=== PATIENT | female | born 1975 | race Caucasian/White ===

== ENCOUNTER 2020-03-11 08:07 | Outpatient (CLI) | payer OTHER ==
--- NOTE | 2020-03-19 08:26 | Mammography Report ---
BILATERAL DIGITAL SCREENING MAMMOGRAM: 03/11/2020 CLINICAL: Baseline exam. No prior exams were available for comparison. The tissue of both breasts is heterogeneously dense. T his may lower the sensitivity of mammography. There is a 1.1 cm irregular asymmetry with an indistinct margin in the right breast middle depth late ral region seen on the craniocaudal view 7.5 cm from the nipple. There is a 0.7 cm irregular asymmetry with an indistinct margin in the left breast middle depth later al region seen on the craniocaudal view 9.3 cm from the nipple. No other significant masses or calcifications are seen in either breast. IMPRESSION: INCOMPLETE: NEEDS ADDITIONAL IMAGING EVALUATION The 1.1 cm irregular asymmetry in the right breast middle depth lateral region seen on the craniocaud al view only is indeterminate. A diagnostic mammogram with possible ultrasound are recommended. The 0.7 cm irregular asymmetry in the left breast middle depth lateral region seen on the craniocauda l view only is indeterminate. A diagnostic mammogram with possible ultrasound are recommended. This exam was interpreted at Station ID: [id number]. NOTE: For mammograms, a report in lay terms will be sent to the patient. Approximately 15% of breast malignancies will not be visualized mammographically. In the management of a palpable breast mass, a negative mammogram must not discourage biopsy of a clinically suspicious lesion. Electronically Signed By: William Enriquez M.D. jr/:03/18/2020 13:19:42 ACR BI-RADS Category 0: Incomplete 3340F PARENCHYMAL PATTERN: (D) - The breast(s) demonstrate(s) heterogeneously dense fibroglandular raeann bueno. BI-RADS CATEGORY: (0) - 0 Mammo and [place] [id number] Immediate follow-up LATERALITY: (B)
== END 2020-03-11 08:08 | disposition home or self-care (01) ==
LOC: DI.N 08:07
DX: Z12.31 Encounter for screening mammogram for malignant neoplasm of breast (principal); R92.8 Other abnormal and inconclusive findings on diagnostic imaging of breast
CPT/HCPCS: 77067

== ENCOUNTER 2020-03-31 10:49 | Outpatient (CLI) | payer OTHER ==
--- NOTE | 2020-04-01 11:49 | Mammography Report ---
BILATERAL DIGITAL DIAGNOSTIC MAMMOGRAM 3D/2D: 03/31/2020 CLINICAL: Patient returns today to evaluate asymmetries in bilateral breasts. Comparison is made to exam dated: 03/11/2020 mammogram - [facility]. The tissue of both breasts is heterogeneously dense. This may lower the sensitivity of mammography. The benign asymmetry in the right breast at 11 o'clock anterior depth is no longer seen. The benign asymmetry in the left breast middle depth central to the nipple seen on the craniocaudal v iew only is no longer seen. No other significant masses or calcifications are seen in either breast. IMPRESSION: BENIGN There is no mammographic evidence of malignancy. Return to annual mammogram screening schedule is rec ommended. This exam was interpreted at Station ID: [id number]. NOTE: For mammograms, a report in lay terms will be sent to the patient. Approximately 15% of breast malignancies will not be visualized mammographically. In the management of a palpable breast mass, a negative mammogram must not discourage biopsy of a clinically suspicious lesion. Electronically Signed By: William Enriquez M.D. jr/:03/31/2020 11:52:52 ACR BI-RADS Category 2: Benign Finding(s) 3342F PARENCHYMAL PATTERN: (D) - The breast(s) demonstrate(s) heterogeneously dense fibroglandular raeann bueno. BI-RADS CATEGORY: (2) - 2 Mammogram [id number] return to screening LATERALITY: (B)
== END 2020-03-31 10:50 | disposition home or self-care (01) ==
LOC: DI 10:49
PROVIDERS: ATTEND Student in an Organized Health Care Education/Training Program
DX: R92.8 Other abnormal and inconclusive findings on diagnostic imaging of breast (principal)
CPT/HCPCS: 77066